=== PATIENT | male | born 1985 | race Two or more races ===

== ENCOUNTER 2017-02-19 10:57 | Emergency (ER) | payer SELFPAY ==
[2017-02-19 11:03] VITALS: BP 133/69; PULSE 81; TEMP 98.6; BMI 29.2
--- NOTE | 2017-02-19 11:31 | PDOC ---
History of Present Illness - General Chief Complaint: Injury Stated Complaint: INJURY Time Seen by Provider: 02/19/17 11:21 History Source: Patient Exam Limitations: No Limitations - History of Present Illness Initial Comments: 02/19/17 11:27 31 y/o male presents to the ED with complaints of left ankle pain. Patient states was playing soccer yesterday when he twisted his ankle during a play. Patient states initially had no discomfort but as the day went on symptoms of soreness started along with swelling. Patient states today symptoms increase or decided come to the ER for further evaluation. Patient denies previous injury to the affected area, sensory changes distal of injury, or radiation of pain. Patient denies medical history and states is on no blood thinners. Occurred: reports: yesterday Severity: reports: mild Pain Location: reports: lower extremity Method of Injury: Yes: fall Modifying Factors: improves with: None Associated Symptoms (Fall): trouble walking Past History - Travel Traveled outside of the country in the last 30 days: No Close contact w/someone who was outside of country & ill: No - Past Medical History Allergies/Adverse Reactions: Allergies Allergy/AdvReac Type Severity Reaction Status Date / Time No Known Allergies Allergy Verified 02/19/17 11:02 Home Medications: Ambulatory Orders No Home Medications 0 dose .ROUTE UTDICT 06/06/12 Other medical history: denies - Immunization History Immunization Up to Date: Yes - Psycho/Social/Smoking Cessation Hx Anxiety: No Suicidal Ideation: No Smoking Status: No Smoking History: Never smoked Number of Cigarettes Smoked Daily: 0 Hx Alcohol Use: No Drug/Substance Use Hx: No Patient Lives Alone: No Lives with/in: spouse/SO Review of Systems - Review of Systems Able to Perform ROS?: No Is the patient limited Latvian proficient: No Constitutional: No: Symptoms Reported Musculoskeletal: Yes: Joint Pain (left ankle) Integumentary: Yes: Bruising, Erythema Neurological: No: Symptoms reported *Physical Exam - Vital Signs Last Vital Signs Temp Pulse Resp BP Pulse Ox 98.6 F 81 18 133/69 98 02/19/17 11:02 02/19/17 11:02 02/19/17 11:02 02/19/17 11:02 02/19/17 11:02 - Physical Exam General Appearance: Yes: Nourished, Appropriately Dressed. No: Apparent Distress Vascular Pulses: Doralis-Pedis (L): 1+ (posttibial 2+) Extremity: positive: Normal Capillary Refill, Normal Range of Motion, Tender ( lateral aspect of left mallelous over the Calcaneofibular ligament). negative: Normal Inspection (edema. no deformity no crepitus) Integumentary: positive: Ecchymosis (mild to lateral aspect) Neurologic: positive: Motor Strength 5/5 (ambulatory) ED Treatment Course - RADIOLOGY Radiology Studies Ordered: Category Date Time Status ANKLE-LEFT [RAD] Stat Radiology 02/19/17 11:25 Ordered Medical Decision Making - Medical Decision Making 02/19/17 11:34 Patient status post left ankle injury yesterday with complaints of her. Patient exam had tenderness over the calcaneofibular ligament. Patient had no other complaints. Patient 's ottowa scale with 2 out of-3 positive findings. Patient for left ankle x-ray. Patient Motrin but refused. 02/19/17 12:05 X-ray shows no acute findings. Patient replace Samy wrap and discharged home with the rice formula. Patient understands supportive care. *DC/Admit/Observation/Transfer Diagnosis at time of Disposition: Left ankle sprain Qualifiers: Encounter type: initial encounter Involved ligament of ankle: calcaneofibular ligament Qualified Code(s): S93.412A - Sprain of calcaneofibular ligament of left ankle, initial encounter - Discharge Dispostion Disposition: HOME Condition at time of disposition: Good - Patient Instructions Printed Discharge Instructions: DI for Ankle Sprain Additional Instructions: Please rest, elevate ankle, apply ice as much as he can tolerate for the next 72 hours and use Samy wrap during the day but remove at night. May take Motrin for discomfort every 8 hours which also alleviate swelling.
== END 2017-02-19 12:11 | disposition home or self-care (01) ==
LOC: JERFT 10:57
DX: S93.412A Sprain of calcaneofibular ligament of left ankle, initial encounter (principal); Y93.66 Activity, soccer; X58.XXXA Exposure to other specified factors, initial encounter; Y92.322 Soccer field as the place of occurrence of the external cause
CPT/HCPCS: 73610-TC-LT; 99281-25

== ENCOUNTER 2023-05-13 10:22 | Emergency (ER) | payer SELFPAY ==
[2023-05-13 10:25] VITALS: BMI 29.5
[2023-05-13] MEDS ORDERED: KETOROLAC TROMETHAMINE 15 MG/ML VIAL IVPUSH ONE (11:24)
[2023-05-13] MEDS ORDERED: LACTATED RINGERS SOLUTION 1000 ML INFUS.BAG IV ONE ×2 (11:24→13:40)
[2023-05-13] MEDS ORDERED: KETOROLAC TROMETHAMINE 15 MG/ML VIAL ONE (11:53)
[2023-05-13 12:14] LABS: BASO % 0.4 % (0-2.0); EOS % 0.5 % (0-4.5); HEMATOCRIT 48.7 % (35.4-49); HEMOGLOBIN 16.2 GM/dL (11.7-16.9); LYMPH % 20.6 % (8-40); MCH 26.4 pg (25.7-33.7); MCHC 33.3 g/dl (32.0-35.9); MEAN CELL VOLUME 79.2 fl (80-96); MEAN PLT VOLUME 10.9 fl (7.5-11.1); MONO % 7.1 % (3.8-10.2); NEUT % 71.4 % (42.8-82.8); PH,URINE 6.5 (5.0-8.0); PLATELET COUNT 150 10^3/uL (134-434); RBC 6.15 M/mm3 (4.00-5.60); RDW 14.4 % (11.9-15.9); URINE APPEARANCE CLEAR; URINE BILIRUBIN NEGATIVE (NEGATIVE); URINE COLOR YELLOW; URINE GLUCOSE (UA) NEGATIVE (NEGATIVE); URINE KETONE NEGATIVE (NEGATIVE); URINE LEUK ESTERASE NEGATIVE (NEGATIVE); URINE NITRITE NEGATIVE (NEGATIVE); URINE PROTEIN NEGATIVE (NEGATIVE); WHITE BLOOD COUNT 8.3 K/mm3 (4.0-10.0)
[2023-05-13 12:49] LABS: ALBUMIN 4.3 g/dl (3.4-5.0); BLOOD UREA NITROGEN 18.6 mg/dL (7-18); CALCIUM 9.4 mg/dL (8.5-10.1); POTASSIUM 4.1 mmol/L (3.5-5.1)
[2023-05-13 12:53] LABS: CREATININE 1.4 mg/dL (0.55-1.3)
[2023-05-13 12:54] LABS: BILIRUBIN,TOTAL 0.8 mg/dL (0.2-1); TOT PROT 8.7 g/dl (6.4-8.2)
[2023-05-13 16:51] VITALS: BP 141/90; PULSE 85; RESP 18; TEMP 98.3
== END 2023-05-13 16:50 | disposition home or self-care (01) ==
LOC: JER 10:22
PROC: 3E0333Z Introduction of Anti-inflammatory into Peripheral Vein, Percutaneous Approach (ICD-10-PCS; principal; 2023-05-13)
DX: R10.32 Left lower quadrant pain (principal); K38.8 Other specified diseases of appendix
CPT/HCPCS: 36415; 74177-TC; 80053; 81003; 85025; 99285-25; Q9967

== ENCOUNTER 2024-03-21 09:55 | Emergency (ER) | payer OTHER ==
[2024-03-21 10:02] VITALS: RESP 17; TEMP 98.2; BMI 36.9
[2024-03-21] MEDS ORDERED: morphine SULFATE 4 MG/ML VIAL ONE ×2 (10:14→10:25)
[2024-03-21] MEDS ORDERED: KETOROLAC TROMETHAMINE 30 MG/1 ML VIAL ONE ×2 (10:14→10:25)
[2024-03-21] MEDS: morphine CARPU-JECT 4 MG/1 ML DISP.SYRIN IVPUSH ONE (10:22)
[2024-03-21] MEDS: KETOROLAC TROMETHAMINE 15 MG/ML VIAL IM ONE (10:23)
[2024-03-21 11:11] LABS: BASO % 0.4 % (0-2.0); EOS % 1.3 % (0-4.5); HEMATOCRIT 49.1 % (35.4-49); HEMOGLOBIN 16.1 GM/dL (11.7-16.9); LYMPH % 26.1 % (8-40); MCH 26.3 pg (25.7-33.7); MCHC 32.8 g/dl (32.0-35.9); MEAN PLT VOLUME 10.7 fl (7.5-11.1); MONO % 9.8 % (3.8-10.2); NEUT % 62.4 % (42.8-82.8); PLATELET COUNT 123 10^3/uL (134-434); RBC 6.13 M/mm3 (4.00-5.60); RDW 14.8 % (11.9-15.9)
[2024-03-21 11:14] LABS: EPI CELLS 1 /uL (0-25.1); HYALINE CASTS 0 /uL (0-3.1); URINE APPEARANCE CLEAR; URINE BACTERIA 14 /uL (0-1359); URINE BILIRUBIN NEGATIVE (NEGATIVE); URINE COLOR YELLOW; URINE GLUCOSE (UA) NEGATIVE (NEGATIVE); URINE KETONE NEGATIVE (NEGATIVE); URINE LEUK ESTERASE NEGATIVE (NEGATIVE); URINE NITRITE NEGATIVE (NEGATIVE); URINE PROTEIN TRACE (NEGATIVE); URINE RBC 34 /uL (0-23.9); URINE WBC 5 /uL (0-25.8)
[2024-03-21 11:15] VITALS: BP 136/82; PULSE 97
[2024-03-21] MEDS: SODIUM CHLORIDE 0.9% 500 ML INFUS.BAG IV ONE (11:15)
[2024-03-21 11:17] LABS: INR 1.02 (0.83-1.09); PROTHROMBIN TIME (PATIENT) 11.5 SEC (9.7-13.0)
[2024-03-21 11:20] LABS: ACTIVATED PTT 34.8 SECONDS (25.2-36.5)
[2024-03-21 11:31] LABS: ALBUMIN 4.2 g/dl (3.4-5.0); BLOOD UREA NITROGEN 20.9 mg/dL (7-18); CALCIUM 9.3 mg/dL (8.5-10.1)
[2024-03-21 11:35] LABS: CREATININE 1.3 mg/dL (0.55-1.3)
[2024-03-21 11:36] LABS: BILIRUBIN,TOTAL 0.9 mg/dL (0.2-1); TOT PROT 7.9 g/dl (6.4-8.2)
[2024-03-21 12:25] LABS: HIV INTERPRETATION NEGATIVE (NEGATIVE)
== END 2024-03-21 12:56 | disposition home or self-care (01) ==
LOC: JER 09:55
PROC: 3E033NZ Introduction of Analgesics, Hypnotics, Sedatives into Peripheral Vein, Percutaneous Approach (ICD-10-PCS; principal; 2024-03-21)
PROC: 3E0133Z Introduction of Anti-inflammatory into Subcutaneous Tissue, Percutaneous Approach (ICD-10-PCS; 2024-03-21)
DX: N20.0 Calculus of kidney (principal); R10.9 Unspecified abdominal pain
CPT/HCPCS: 36415; 74176-TC; 80053; 81003; 85025; 85610; 85730; 86803; 86850; 86900; 86901; 87086; 87389; 96372; 96374; 99284-25